=== PATIENT | female | born 1960 | race Caucasian/White ===

== ENCOUNTER 2018-02-12 16:49 | Inpatient (IN) | payer MEDICAID ==
[~2018-02-12] VITALS: Ht 157.5 cm; Wt 78.0 kg
[2018-02-12 16:58] VITALS: BP 137/80
--- NOTE | 2018-02-12 17:14 | NUR ---
PT AMBULATES TO [facility] RN NOTIFIED Addendum: 02/12/18 at 1736 by ADAMS UNABLE TO PROVIDE URINE AT THIS TIME
--- NOTE | 2018-02-12 17:30 | NUR ---
PT AMBULATES TO BED 1 FROM CHAIR E, REPORT GIVEN TO SONIYA MCLAIN
--- NOTE | 2018-02-12 17:36 | NUR ---
57 YO F BIB NEICE WITH C/O ABDOMINAL PAIN, DIZZINESS, VOMITING SINCE LAST NIGHT; RECEIVED PENICILLIN AND IBUPROFEN YESTERDAY FROM HER DENTIST S/P FRONT TOOTH EXTRACTION. PT REPORTS THAT SHE BELIEVES SHE IS FEELING THIS WAY BECAUSE OF THE PENICILLIN, IT HAS HAPPENED BEFORE. PT DENIES INJURY/TRAUMA. REPORTS SHE HAS NOT BEEN ABLE TO EAT/DRINK TODAY. PT AAOX4, GCS 15, CMS INTACT. RR EVEN AND UNLABORED, LUNGS CLEAR. ABD SOFT, NON-TENDER. BOWEL SOUNDS ACTIVE X 4 QUADRANTS. EAMBULATORY W/ STEADY GAIT. ER MD NOTIFIED OF PT STATUS. PT NEEDS MET. SAFETY PRECAUTIONS IN PLACE, WILL CONTINUE TO MONITOR.
--- NOTE | 2018-02-12 18:41 | NUR ---
Note jasiel in EDM - 02/12/18 at 1843 by [email or web address] PT RESTING COMFORTABLY IN [facility] AT THIS TIME W/ VSS, RR EVEN AND UNLABORED. NO NEW ORDERS AT THIS TIME FOR PT. HAS NOT BEEN SEEN BY ETHAN VALLEJO. SAFETY PRECAUTIONS IN PLACE. WILL CONTINUE TO MONITOR.
--- NOTE | 2018-02-12 18:43 | NUR ---
PT RESTING COMFORTABLY IN [facility] AT THIS TIME W/ VSS, RR EVEN AND UNLABORED. NO NEW ORDERS AT THIS TIME FOR PT. SAFETY PRECAUTIONS IN PLACE. WILL CONTINUE TO MONITOR.
--- NOTE | 2018-02-12 19:13 | NUR ---
RECEIVED REPORT FROM CHEMO BYRNES, TRANSFER OF CARE AT THIS TIME.
--- NOTE | 2018-02-12 19:15 | NUR ---
REPORT GIVEN TO SONIYA MACIAS
[2018-02-12] MEDS ORDERED: ONDANSETRON 4 MG ODT PO ONE (19:35)
[2018-02-12] MEDS ORDERED: KETOROLAC 60 MG/2 ML VIAL IM ONE (19:35)
--- NOTE | 2018-02-12 19:38 | NUR ---
ER MD SABA STATES PT NEEDS TO PROVIDE URINE PRIOR TO RECEIVING TORADOL SHOT. PT NOTIFIED. SONIYA MACIAS NOTIFIED.
--- NOTE | 2018-02-12 19:50 | NUR ---
PATIENT PROVIDED URINE AT THIS TIME.
[2018-02-12] MEDS ORDERED: NACL 0.9% 1,000 ML IV SCH (20:00)
--- NOTE | 2018-02-12 20:20 | NUR ---
PATIENT TO CT VIA GURNEY.
[2018-02-12 20:32] LABS: BASOPHILS % (AUTO) 0.3 % (0.0-2.0); EOSINOPHILS # (AUTO) 0.1 K/uL (0-0.4); EOSINOPHILS % (AUTO) 0.8 % (0.0-4.0); HEMOGLOBIN 13.6 g/dL (12.0-16.0); LYMPHOCYTES # (AUTO) 1.2 K/uL (2.5-16.5); LYMPHOCYTES % (AUTO) 12.3 % (20.5-51.1); MEAN CORPUSCULAR HEMOGLOBIN 30 pg (27-31); MEAN CORPUSCULAR HGB CONC 33 g/dL (33-37); MEAN CORPUSCULAR VOLUME 89.2 fL (80-94); MONOCYTES # (AUTO) 0.4 K/uL (0.8-1.0); NEUTROPHILS # (AUTO) 8.1 K/uL (1.8-7.7); NEUTROPHILS % (AUTO) 82.6 % (42.2-75.2); PLATELET COUNT (AUTO) 242 K/uL (140-450); RED CELL DISTRIBUTION WIDTH 14.4 % (11.6-13.7); WHITE BLOOD COUNT (AUTO) 9.9 K/uL (4.8-10.8)
--- NOTE | 2018-02-12 20:35 | NUR ---
PATIENT RETURN FROM CT.
[2018-02-12 20:41] LABS: ANION GAP 16.4 (8-16); CARBON DIOXIDE 23.9 mmol/L (21-32); CREATININE 0.6 mg/dL (0.6-1.3); POTASSIUM 4.3 mmol/L (3.5-5.1)
[2018-02-12 20:47] LABS: ALBUMIN 4.3 g/dL (3.4-5.0); TOTAL BILIRUBIN 0.4 mg/dL (0.0-1.0)
--- NOTE | 2018-02-12 21:15 | NUR ---
PATIENT RESTING AT THIS TIME.
[2018-02-12] MEDS ORDERED: ACETAMINOPHEN 325 MG TAB PO PRN (22:15)
[2018-02-12] MEDS ORDERED: ONDANSETRON 4 MG/2 ML VIAL IVP PRN (22:15)
--- NOTE | 2018-02-12 22:30 | NUR ---
PATIENT RESTING AT THIS TIME. NO SIGNS OF DISTRESS.
--- NOTE | 2018-02-12 23:09 | NUR ---
Patient will be admitted to care of DR. HANLEY. Admited to M/S. Will go to room 104A. Belongings list completed. Report to FRANCES BYRNES.
--- NOTE | 2018-02-12 23:10 | NUR ---
PT ARRIVED ON UNIT VIA WHEELCHAIR WITH ER NURSE. PT IN STABLE CONDITION. PT ABLE TO AMBULATE FROM WHEELCHAIR TO BED. PT IS A/O X4. IV ACCESS IN L AC 20 G, SALINE LOCKED. IV IS PATENT AND INTACT. SKIN IS INTACT. PT C/O RLQ ABDOMINAL PAIN 11/15. ALLERGY ARM BAND APPLIED. ORIENTED PT TO ROOM AND CALL LIGHT USE. BOARD UPDATED. BED LOCKED, LOW POSITION WITH SIDE RAILS UP X2. CALL LIGHT WITHIN REACH. MRSA SWAB COLLECTED. WILL CONTINUE TO MONITOR PT.
[2018-02-12] MEDS: MORPHINE SULFATE 2 MG/ML SYR IVP PRN (23:35)
--- NOTE | 2018-02-12 23:35 | NUR ---
PT C/O PAIN. MORPHINE GIVEN.
[2018-02-13] VITALS: BP 137/74
--- NOTE | 2018-02-13 00:40 | NUR ---
PER MD ORDERS, NG TUBE INSERTED, TURNED TO LOW INTERMITTENT SUCTION. PT TOLERATED WELL. WILL CONTINUE TO MONITOR.
--- NOTE | 2018-02-13 01:46 | NUR ---
PT C/O INSOMNIA. ANGIEIEN GIVEN. WILL CONTINUE TO MONITOR.
[2018-02-13] MEDS ORDERED: ZOLPIDEM 5 MG TAB PO SCH (02:00)
--- NOTE | 2018-02-13 03:52 | NUR ---
PT IS ASLEEP IN BED. NO S/SX OF DISTRESS. WILL CONTINUE TO MONITOR.
[2018-02-13] MEDS: MORPHINE SULFATE 2 MG/ML SYR IVP PRN ×4 (04:34→19:56)
--- NOTE | 2018-02-13 04:34 | NUR ---
PT C/O PAIN. MORPHINE GIVEN. WILL CONTINUE TO MONITOR.
[2018-02-13 06:14] LABS: BASOPHILS % (AUTO) 0.3 % (0.0-2.0); EOSINOPHILS # (AUTO) 0.2 K/uL (0-0.4); EOSINOPHILS % (AUTO) 2.8 % (0.0-4.0); HEMATOCRIT 37.8 % (36-48); HEMOGLOBIN 12.5 g/dL (12.0-16.0); LYMPHOCYTES # (AUTO) 1.6 K/uL (2.5-16.5); LYMPHOCYTES % (AUTO) 25.1 % (20.5-51.1); MEAN CORPUSCULAR HEMOGLOBIN 30 pg (27-31); MEAN CORPUSCULAR HGB CONC 33 g/dL (33-37); MEAN CORPUSCULAR VOLUME 89.8 fL (80-94); MONOCYTES # (AUTO) 0.4 K/uL (0.8-1.0); MONOCYTES % (AUTO) 6.9 % (1.7-9.3); NEUTROPHILS # (AUTO) 4.1 K/uL (1.8-7.7); NEUTROPHILS % (AUTO) 64.9 % (42.2-75.2); PLATELET COUNT (AUTO) 204 K/uL (140-450); RED BLOOD CELL COUNT(AUTO) 4.21 MIL/uL (4.20-5.40); RED CELL DISTRIBUTION WIDTH 14.4 % (11.6-13.7); WHITE BLOOD COUNT (AUTO) 6.4 K/uL (4.8-10.8)
[2018-02-13 06:36] LABS: ALBUMIN 3.5 g/dL (3.4-5.0); ANION GAP 11.2 (8-16); CARBON DIOXIDE 27.2 mmol/L (21-32); CREATININE 0.7 mg/dL (0.6-1.3); MAGNESIUM 1.7 mg/dL (1.8-2.4); PHOSPHORUS 3.9 mg/dL (2.5-4.9); POTASSIUM 4.4 mmol/L (3.5-5.1); TOTAL BILIRUBIN 0.4 mg/dL (0.0-1.0)
--- NOTE | 2018-02-13 07:11 | NUR ---
ENDORSED PT TO DAY SHIFT NURSE FOR CONTINUITY OF CARE. PT IN STABLE CONDITION.
--- NOTE | 2018-02-13 07:12 | NUR ---
RECEIVED REPORT FROM WILDLIFE PHOTOGRAPHER RN. PATIENT IS SLEEPING BUT AWAKENS TO NAME. NO SIGNS AND SYMPTOMS OF ACUTE DISTRESS NOTED AT THIS TIME. HAS NG TUBE IN LEFT NARE CONNECTED TO SUCTION, WITH LOW INTERMITTENT SETTING. HAS IV TO THE LEFT AC 20G, ON SALINE LOCK AT THIS TIME. DISCUSSED PLAN OF CARE WITH PATIENT AND SHE VERBALIZED UNDERSTANDING. BED IN LOWEST POSITION, SIDE RAILS UP X2, CALL LIGHT WITHIN REACH. WILL CONTINUE TO MONITOR.
[2018-02-13 08:00] VITALS: BP 116/77
--- NOTE | 2018-02-13 12:24 | NUR ---
PATIENT HAS BEEN SCREENED AND CATEGORIZED MODERATE NUTRITION RISK. PATIENT WILL BE SEEN WITHIN 3-5 DAYS OF ADMISSION. 02/15/18 02/17/18 ROMAINE GRIJALVA MBA, RD
[2018-02-13] MEDS ORDERED: MAG SULF 2000 MG/WATER PREMIX 50 ML IV SCH (14:30)
--- NOTE | 2018-02-13 15:30 | NUR ---
PATIENT TAKEN TO RADIOLOGY FOR SMALL BOWEL FOLLOW THROUGH.
[2018-02-13 16:00] VITALS: BP 109/77
--- NOTE | 2018-02-13 16:35 | NUR ---
PATIENT BACK FROM RADIOLOGY. NO SIGNS AND SYMPTOMS OF DISTRESS NOTED.
--- NOTE | 2018-02-13 18:50 | NUR ---
FOUND OUT FROM RADIOLOGY THAT NOT TO CONNECT PATIENT BACK TO SUCTION UNTIL AFTER 2129.
--- NOTE | 2018-02-13 19:30 | NUR ---
ENDORSED PATIENT TO CARBONATION TESTER RN FOR CONTINUITY OF CARE. PATIENT IN STABLE CONDITION.
--- NOTE | 2018-02-13 19:31 | NUR ---
RECEIVED REPORT FROM DAY SHIFT NURSE. PT IN BED, AAOX4. PT'S NIECE AT BEDSIDE. NO C/O PAIN AT THIS TIME. NO RESP DISTRESS NOTED. PT ON ROOM AIR. PT HAS NG TUBE TO LEFT NARE. DISCUSSED PLAN OF CARE, PT VERBALIZED UNDERSTANDING. SAFETY PRECAUTION IN PLACE. CALL LIGHT WITHIN REACH.
[2018-02-13] MEDS: FAMOTIDINE 20 MG/2 ML VIAL IV SCH (20:12)
--- NOTE | 2018-02-13 21:50 | NUR ---
AUTOMOBILE REPOSSESSOR IN THE ROOM FOR X-RAY OF ABDOMEN.
--- NOTE | 2018-02-13 22:05 | NUR ---
STARTED LOW INTERMITTENT SUCTION. PT TOLERATED WELL. DENIES PAIN. NO RESP DISTRESS NOTED.
[2018-02-13] MEDS: NACL 0.9% 1,000 ML IV SCH (23:50)
[2018-02-14] VITALS: BP 134/80
--- NOTE | 2018-02-14 00:10 | NUR ---
PT LYING COMFORTABLY IN BED. RESP EVEN AND UNLABORED. NO C/O PAIN.
[2018-02-14] MEDS: MORPHINE SULFATE 2 MG/ML SYR IVP PRN ×5 (02:07→22:04)
--- NOTE | 2018-02-14 02:15 | NUR ---
PT C/O INABILITY TO SLEEP AND ASKING FOR MEDS TO MAKE HER SLEEP. WILL PAGE DR. MCFARLAND.
--- NOTE | 2018-02-14 02:18 | NUR ---
PAGED DR. MCFARLAND. DR. Emilio COLEMAN PRINTER HELPER. ORDERED AMBIEN 5 MG PO ONCE.
[2018-02-14] MEDS ORDERED: ZOLPIDEM 5 MG TAB ONE (02:20)
[2018-02-14] MEDS ORDERED: ZOLPIDEM 5 MG TAB PO SCH (02:30)
--- NOTE | 2018-02-14 04:30 | NUR ---
PT SLEEPING. NO S/S OF PAIN. NO S/S OF RESP DISTRESS NOTED.
--- NOTE | 2018-02-14 06:26 | NUR ---
PT SLEEPING. RESP EVEN AND UNLABORED. NO S/S OF PAIN OR SOB.
--- NOTE | 2018-02-14 07:03 | NUR ---
ENDORSED PT TO DAY SHIFT NURSE. PT IN STABLE CONDITION.
[2018-02-14 07:05] LABS: BASOPHILS % (AUTO) 0.5 % (0.0-2.0); EOSINOPHILS # (AUTO) 0.2 K/uL (0-0.4); EOSINOPHILS % (AUTO) 4.1 % (0.0-4.0); HEMATOCRIT 36.6 % (36-48); HEMOGLOBIN 12.2 g/dL (12.0-16.0); LYMPHOCYTES # (AUTO) 1.1 K/uL (2.5-16.5); LYMPHOCYTES % (AUTO) 20.3 % (20.5-51.1); MEAN CORPUSCULAR HEMOGLOBIN 30 pg (27-31); MEAN CORPUSCULAR HGB CONC 34 g/dL (33-37); MEAN CORPUSCULAR VOLUME 89.9 fL (80-94); MONOCYTES # (AUTO) 0.4 K/uL (0.8-1.0); MONOCYTES % (AUTO) 6.8 % (1.7-9.3); NEUTROPHILS # (AUTO) 3.7 K/uL (1.8-7.7); NEUTROPHILS % (AUTO) 68.3 % (42.2-75.2); PLATELET COUNT (AUTO) 179 K/uL (140-450); RED BLOOD CELL COUNT(AUTO) 4.07 MIL/uL (4.20-5.40); RED CELL DISTRIBUTION WIDTH 14.4 % (11.6-13.7); WHITE BLOOD COUNT (AUTO) 5.4 K/uL (4.8-10.8)
--- NOTE | 2018-02-14 07:05 | NUR ---
ASSUMED CONTINUITY OF CARE. NO SIGNS AND SYMPTOMS OF ACUTE DISTRESS NOTICED. INITIAL ASSESSMENT DONE. HOB ELEVATED AND KEEP COMFORTABLE. EXPLAINED DIAGNOSIS, PLAN OF CARE, PAIN MANAGEMENT TEACHING, USE OF CALL LIGHT/BED/TV/BATHROOM. VERBALIZED UNDERSTANDING. CALL LIGHT WITHIN REACH.
[2018-02-14 07:08] LABS: ALBUMIN 3.2 g/dL (3.4-5.0); ANION GAP 10.3 (8-16); CARBON DIOXIDE 25.9 mmol/L (21-32); CREATININE 0.5 mg/dL (0.6-1.3); POTASSIUM 4.2 mmol/L (3.5-5.1); TOTAL BILIRUBIN 0.4 mg/dL (0.0-1.0)
[2018-02-14 08:00] VITALS: BP 111/71
--- NOTE | 2018-02-14 08:00 | NUR ---
DR. ANDERSEN CALLED AND ASKED FOR XR SMALL BOWEL FOLLOW TROUGH RESULTS AND IMPRESSION WAS READ TO DR. ANDERSEN VIA PHONE. NO ORDER RECEIVED. INFORMED CHARGE NURSE PAKO SIU.
--- NOTE | 2018-02-14 08:00 | NUR ---
Patient's Plan of Care was discussed and reviewed with ELECTRONICS DEPARTMENT MANAGER: CRISTY BAEZA
[2018-02-14] MEDS: FAMOTIDINE 20 MG/2 ML VIAL IV SCH ×2 (09:00→20:40)
[2018-02-14] MEDS: NACL 0.9% 1,000 ML IV SCH (09:50)
[2018-02-14 12:00] VITALS: BP 125/68
--- NOTE | 2018-02-14 12:00 | NUR ---
VITALS SIGNS STABLE. NO C/O PAIN. WILL MONITOR.
[2018-02-14] MEDS: DEXT 5% /NACL 0.9% 1,000 ML IV SCH (12:20)
[2018-02-14] MEDS ORDERED: DEXT 5% / NACL 0.9% 500 ML IV SCH (17:40)
[2018-02-14 18:25] LABS: PROTHROMBIN TIME 9.8 secs (10.8-13.4)
[2018-02-14 18:41] LABS: CHOL/HDL RATIO 2.8 (1-4.5); THYROID STIMULATING HORMONE 3.29 uIU/mL (0.34-3.74)
--- NOTE | 2018-02-14 19:12 | NUR ---
REPORT GIVEN TO ALESHA MERCADO -SONIYA. IVF INFUSING WELL. IN STABLE CONDITION.
--- NOTE | 2018-02-14 19:13 | NUR ---
RECEIVED REPORT FROM DAY SHIFT NURSE. PT IN BED, AAOX4. PT HAS NG TUBE TO LEFT NARE, ON LOW INTERMITTENT SUCTION, PT TOLERATING WELL. NO C/O PAIN OR SOB. HOB ELEVATED. IV TO LEFT AC #20G, D5NS AT 100 ML/HR, INFUSING WELL. DISCUSSED PLAN OF CARE, PT VERBALIZED UNDERSTANDING. SAFETY PRECAUTION IN PLACE. CALL LIGHT WITHIN REACH.
[2018-02-14 21:56] LABS: APPEARANCE,URINE SL CLOUDY (CLEAR); BILIRUBIN,URINE NEGATIVE (NEGATIVE); BLOOD, URINE TRACE-I (NEGATIVE); COLOR,URINE YELLOW (YELLOW); LEUKOCYTE ESTERASE ,URINE NEGATIVE (NEGATIVE); NITRITE, URINE POSITIVE (NEGATIVE); UGLUCOSE NEGATIVE (NEGATIVE)
--- NOTE | 2018-02-14 22:04 | NUR ---
PT C/O ABDOMINAL PAIN 11/15. MORPHINE 2 MG IVP GIVEN ORDERED FOR MODERATE PAIN.
[2018-02-14 22:55] LABS: RBC,URINE 0-5 (RARE) /HPF (0-5); WBC,URINE 0-5 (RARE) /HPF (0-5)
[2018-02-15] VITALS: BP 124/79
[2018-02-15] MEDS: ZOLPIDEM 5 MG TAB PO PRN (00:32)
--- NOTE | 2018-02-15 00:32 | NUR ---
PT ASKED FOR MEDICINE TO MAKE HER SLEEP. AMBIEN 5 MG PO GIVEN ORDERED.
--- NOTE | 2018-02-15 02:00 | NUR ---
PT SLEEPING, EASILY AROUSABLE. NO S/S OF DISTRESS NOTED.
[2018-02-15] MEDS: MORPHINE SULFATE 2 MG/ML SYR IVP PRN ×5 (03:19→21:34)
--- NOTE | 2018-02-15 03:19 | NUR ---
PT C/O ABDOMINAL PAIN. MORPHINE 2MG IVP GIVEN ORDERED FOR MODERATE PAIN.
--- NOTE | 2018-02-15 05:50 | NUR ---
DR. DANIEL MADE AWARE OF PT'S URINE BACTERIA 4+.
[2018-02-15] MEDS: DEXT 5% /NACL 0.9% 1,000 ML IV SCH ×2 (06:57→17:34)
--- NOTE | 2018-02-15 07:15 | NUR ---
ENDORSED PT TO DAY SHIFT NURSE. PT IN STABLE CONDITION.
--- NOTE | 2018-02-15 07:16 | NUR ---
PATIENT LYING IN BED, ASSISTED PATIENT TO BATHROOM AND BACK TO BED VIA AMBULATION. NO DISTRESS NOTED. COMPLAINTS OF ABDOMEN PAIN, WILL MEDICATE PER ORDERS. RESPIRATIONS EVEN, UNLABORED, ON ROOM AIR. AAOX4, CALM, COOPERATIVE, SKIN COLOR APPROPRIATE TO ETHNICITY, WARM TO TOUCH. SKIN IS INTACT. HAS NGTUBE IN PLACE, ON LOW-INTERMITTENT SUCTION WITH YELLOW DRAINAGE. DENIES ANY NAUSEA/VOMITING AT THIS TIME. NO VOMIT REPORTS DURING EVENT SALES REPRESENTATIVE. HAD 1 BM LAST NIGHT, AND 1 EARLIER THIS MORNING. LUNGS CTA ON ALL LOBES. ABDOMEN SOFT. REVIEWED PLAN OF CARE WITH PATIENT. PATIENT VERBALIZED UNDERSTANDING. SAFETY MEASURES IN PLACE, CALL LIGHT WITHIN REACH. WILL CONTINUE TO MONITOR.
[2018-02-15 08:00] VITALS: BP 126/72
[2018-02-15] MEDS: FAMOTIDINE 20 MG/2 ML VIAL IV SCH ×2 (08:23→21:31)
--- NOTE | 2018-02-15 08:30 | NUR ---
PATIENT LYING DOWN IN BED WITH COMPLAINTS OF ABD PAIN. MEDICATED WITH MORPHINE PER MD ORDERS. OTHER SCHEDULED MEDICATIONS DUE GIVEN. SAFETY MEASURES IN PLACE, CALL LIGHT WITHIN REACH. WILL CONTINUE TO MONITOR.
[2018-02-15 08:35] LABS: BASOPHILS % (AUTO) 0.2 % (0.0-2.0); EOSINOPHILS # (AUTO) 0.2 K/uL (0-0.4); EOSINOPHILS % (AUTO) 4.1 % (0.0-4.0); HEMATOCRIT 33.9 % (36-48); HEMOGLOBIN 11.4 g/dL (12.0-16.0); LYMPHOCYTES % (AUTO) 17.3 % (20.5-51.1); MEAN CORPUSCULAR HEMOGLOBIN 30 pg (27-31); MEAN CORPUSCULAR HGB CONC 34 g/dL (33-37); MEAN CORPUSCULAR VOLUME 89.7 fL (80-94); MONOCYTES # (AUTO) 0.3 K/uL (0.8-1.0); MONOCYTES % (AUTO) 5.7 % (1.7-9.3); NEUTROPHILS # (AUTO) 4.1 K/uL (1.8-7.7); NEUTROPHILS % (AUTO) 72.7 % (42.2-75.2); PLATELET COUNT (AUTO) 176 K/uL (140-450); RED BLOOD CELL COUNT(AUTO) 3.78 MIL/uL (4.20-5.40); WHITE BLOOD COUNT (AUTO) 5.7 K/uL (4.8-10.8)
[2018-02-15] MEDS: LACTOBACILLUS RHAMNOSUS GG 1 EACH CAP PO SCH (09:00)
[2018-02-15 09:06] LABS: ANION GAP 11.5 (8-16); CARBON DIOXIDE 23.1 mmol/L (21-32); CREATININE 0.5 mg/dL (0.6-1.3); POTASSIUM 3.6 mmol/L (3.5-5.1)
--- NOTE | 2018-02-15 10:18 | NUR ---
ASSISTED PATIENT TO BATHROOM AND BACK TO BED. SCHEDULED MEDICATIONS DUE GIVEN. LACTOBACILLUS PO NOT GIVEN DUE TO PATIENT NPO AND VERIFIED WITH DR. STODDARD. PER DR. STODDARD, NOT TO GIVE LACTOBACILLUS DOSE TODAY. WILL CONTINUE TO MONITOR.
--- NOTE | 2018-02-15 12:57 | NUR ---
PATIENT SITTING IN BED COMFORTABLY. NO NAUSEA/VOMITING. COMPLAINS OF ABD PAIN, MORPHINE GIVEN PER ORDERS. WILL CONTINUE TO MONITOR.
--- NOTE | 2018-02-15 13:02 | NUR ---
CM NOTE RECEIVED CALL FROM [employer] [facility] PH# [phone] AND HE SAID THAT IF THEIR PRODUCTION TEAM MANAGER WOULD DECIDE TO TRANSFER PATIENT TO THEIR CONTRACTED FACILITY, FOR [facility] AUTH# [id number]. I ALSO GAVE HIM THE NUMBER TO THE NURSING STATION WHERE PATIENT IS. DR. STODDARD AWARE. INITIAL REVIEW FAXED TO [facility] [phone] PH# [phone] AND TO [employer] [facility] [phone] [facility] PH# [phone].
--- NOTE | 2018-02-15 14:30 | NUR ---
REMOVED NGTUBE PER MD ORDERS. PATIENT TOLERATED PROCEDURE WELL. WILL CONTINUE TO MONITOR.
[2018-02-15 16:00] VITALS: BP 126/81
--- NOTE | 2018-02-15 17:40 | NUR ---
PATIENT SITTING IN BED. NO DISTRESS NOTED. COMPLAINS OF ABD PAIN. DENIES ANY NAUSEA/VOMITING. MORPHINE GIVEN PER MD ORDERS. WILL CONTINUE TO MONITOR.
--- NOTE | 2018-02-15 19:36 | NUR ---
RECEIVED BEDSIDE REPORT FROM SONIYA BLACKWOOD. PT IN BED NO SIGNS OF DISTRESS. ON RA, IV IN LEFT AC INFUSING D5 AND 1/2 NS AT 90 ML/HR. PT AWAKE AND ABLE TO FOLLOW COMMANDS DURING ASSESSMENT. CALL LIGHT WITHIN REACH, WILL CONTINUE TO MONITOR.
--- NOTE | 2018-02-15 19:36 | NUR ---
GAVE REPORT TO INSTRUCTIONAL SERVICES SPECIALIST NURSE FOR CONTINUITY OF CARE. PATIENT IN STABLE CONDITION.
--- NOTE | 2018-02-15 21:34 | NUR ---
PT C/O PAIN 8/10 IN ABDOMEN, MEDICATED WITH MORPHINE ACCORDING TO MD ORDER. WILL CONTINUE TO MONITOR.
--- NOTE | 2018-02-15 22:06 | NUR ---
PT RESTING IN BED NO SIGNS OF ACUTE DISTRESS. WILL CONTINUE TO MONITOR.
--- NOTE | 2018-02-15 23:30 | NUR ---
PTS IV DRESSING WET, CHANGED DRESSING, SECURED WITH TAPE. PT DENIES PAIN AT SITE. WILL CONTINUE TO MONITOR.
[2018-02-16] VITALS: BP 112/64
[2018-02-16] MEDS: ZOLPIDEM 5 MG TAB PO PRN (00:29)
--- NOTE | 2018-02-16 00:29 | NUR ---
PT C/O OF HAVING PROBLEMS STAYING ASLEEP. MEDICATED WITH AMBIEN ACCORDING TO MD ORDER. WILL CONTINUE TO MONITOR.
[2018-02-16] MEDS ORDERED: MAG SULF 2000 MG/WATER PREMIX 50 ML IV SCH (02:00)
--- NOTE | 2018-02-16 03:00 | NUR ---
PT SLEEPING IN BED NO SIGNS OF DISTRESS. WILL CONTINUE TO MONITOR.
[2018-02-16] MEDS: DEXT 5% /NACL 0.9% 1,000 ML IV SCH (05:47)
[2018-02-16] MEDS: MORPHINE SULFATE 2 MG/ML SYR IVP PRN ×2 (05:53→10:51)
--- NOTE | 2018-02-16 05:53 | NUR ---
PT C/O PAIN 01/15, MEDICATED ACCORDING TO MD ORDER.
[2018-02-16] MEDS ORDERED: LACTOBACILLUS RHAMNOSUS GG 1 EACH CAP PO SCH (06:35)
[2018-02-16] MEDS ORDERED: NITR100C7 PO (06:41)
[2018-02-16] MEDS ORDERED: LACT10CA PO (06:41)
[2018-02-16 06:43] LABS: BASOPHILS % (AUTO) 0.3 % (0.0-2.0); EOSINOPHILS # (AUTO) 0.2 K/uL (0-0.4); EOSINOPHILS % (AUTO) 5.4 % (0.0-4.0); HEMATOCRIT 35.6 % (36-48); HEMOGLOBIN 11.9 g/dL (12.0-16.0); LYMPHOCYTES # (AUTO) 1.4 K/uL (2.5-16.5); LYMPHOCYTES % (AUTO) 32.6 % (20.5-51.1); MEAN CORPUSCULAR HEMOGLOBIN 30 pg (27-31); MEAN CORPUSCULAR HGB CONC 34 g/dL (33-37); MEAN CORPUSCULAR VOLUME 89.3 fL (80-94); MONOCYTES # (AUTO) 0.4 K/uL (0.8-1.0); MONOCYTES % (AUTO) 8.5 % (1.7-9.3); NEUTROPHILS # (AUTO) 2.3 K/uL (1.8-7.7); NEUTROPHILS % (AUTO) 53.2 % (42.2-75.2); PLATELET COUNT (AUTO) 208 K/uL (140-450); RED BLOOD CELL COUNT(AUTO) 3.98 MIL/uL (4.20-5.40); RED CELL DISTRIBUTION WIDTH 13.8 % (11.6-13.7); WHITE BLOOD COUNT (AUTO) 4.3 K/uL (4.8-10.8)
[2018-02-16 06:58] LABS: ANION GAP 10.1 (8-16); CARBON DIOXIDE 26.6 mmol/L (21-32); CREATININE 0.7 mg/dL (0.6-1.3); POTASSIUM 3.7 mmol/L (3.5-5.1)
[2018-02-16 07:03] LABS: MAGNESIUM 2.3 mg/dL (1.8-2.4); PHOSPHORUS 4.1 mg/dL (2.5-4.9)
--- NOTE | 2018-02-16 07:32 | NUR ---
ENDORSED PT TP DAY SHIFT NURSE PT STABLE.
--- NOTE | 2018-02-16 07:33 | NUR ---
RECEIVED REPORT FROM THE TRANSIT PLANNER NURSE AT BEDSIDE FOR CONTINUITY OF CARE. PT IS AWAKE AND ORIENTED. INTRODUCED MYSELF AND UPDATED THE BOARD. PT ON ROOM AIR. L AC 20G D5 NS AT 90ML INFUSING. V/S WITHIN NORMAL RANGE. DENIES PAIN. SKIN INTACT. PER MD, PT WILL BE DC'D TODAY. PER PT, HER ONLY RIDE WILL BE HERE AFTER 12PM. WILL AWAIT ORDERS. WILL CONTINUE TO MONITOR PT.
[2018-02-16] MEDS ORDERED: DOCU-299 PO (07:54)
[2018-02-16 08:00] VITALS: BP 115/70
[2018-02-16] MEDS: FAMOTIDINE 20 MG/2 ML VIAL IV SCH (08:54)
[2018-02-16] MEDS: LACTOBACILLUS RHAMNOSUS GG 1 EACH CAP PO SCH (08:54)
--- NOTE | 2018-02-16 09:02 | NUR ---
ADMINISTERED MORNING MEDS. PT TOLERATED WELL. PT REQUESTED SOME DISPOSABLE UNDERWEAR AND PADS. GIVEN. ALL NEEDS MET AT THIS TIME. WILL CONTINUE TO MONITOR PT.
--- NOTE | 2018-02-16 10:54 | NUR ---
ADMINISTERED MORPHINE REQUESTED. C/O PAIN 12/15.TOLERATED WELL. WILL CONTINUE TO MONITOR PT.
--- NOTE | 2018-02-16 12:26 | NUR ---
PT WANTED TO GET WASHED UP. GOT HER SOME WASH CLOTHS. REMOVED IV, CANNULA INTACT. NO BLEEDING NOTED. REMOVED ID BANDS. PT WILL LET ME KNOW WHEN SHE IS READY FOR D/C INSTRUCTIONS. PT'S RIDE SHOULD BE HERE IN ABOUT AN HOUR PER PT.
--- NOTE | 2018-02-16 13:02 | NUR ---
GAVE D/C INSTRUCTIONS TO PT. PT VERBALIZED UNDERSTANDING. ANSWERED ALL QUESTIONS. PT WILL GET DRESSED AND PER PT RIDE IS ON HER WAY. WILL AWAIT TRANSPORTATION. WILL GET WHEELCHAIR READY.
--- NOTE | 2018-02-16 13:18 | NUR ---
RIN NOTE DISCHARGE SUMMARY FAXED TO [facility] [phone] PH# [phone] AND TO [facility] [phone] [facility] PH# [phone].
--- NOTE | 2018-02-16 13:40 | NUR ---
WALKED PT OUT WITH DAUGHTER ACCOMPANYING PT. ALL PERSONAL BELONGINGS WITH PT. REFUSED WHEELCHAIR. PT IN STABLE CONDITION.
--- NOTE | 2018-02-17 08:27 | NUR ---
FAXED DISCHARGE SUMMARY TO [facility] [phone] AND [facility] [phone] Addendum: 02/17/18 at 0830 by Radha William CM DID NO FAX SUMMARY, ALREADY FAXED
== END 2018-02-16 13:40 | disposition home or self-care (01) | DRG 247 ==
LOC: MED 16:49 → MTU 22:28
PROVIDERS: ADMIT Hospitalist; ATTEND General Practice
PROC: 0D9670Z Drainage of Stomach with Drainage Device, Via Natural or Artificial Opening (ICD-10-PCS; principal; 2018-02-13)
DX: K56.7 Ileus, unspecified (principal); E44.0 Moderate protein-calorie malnutrition; E83.42 Hypomagnesemia; K57.90 Diverticulosis of intestine, part unspecified, without perforation or abscess without bleeding; D18.09 Hemangioma of other sites; E66.9 Obesity, unspecified; N39.0 Urinary tract infection, site not specified; I10 Essential (primary) hypertension; Z68.31 Body mass index [BMI] 31.0-31.9, adult; Z88.6 Allergy status to analgesic agent; Z90.49 Acquired absence of other specified parts of digestive tract; Z90.710 Acquired absence of both cervix and uterus
CPT/HCPCS: 36415; 71045; 74018; 74250; 80048; 80053; 81001; 81025; 83036; 83690; 83735; 84100; 84134; 84443; 85025; 85610; 85730; 87081; 87086; 93005; 96372; 99285; J0696; J1885; J2270; J3475; J3490; J7030; J7042; J7060; Q0092; Q9967; S0119

== ENCOUNTER 2021-08-02 18:06 | Emergency (ER) | payer MEDICAID ==
[~2021-08-02] VITALS: Ht 154.9 cm; Wt 92.1 kg
[~2021-08-02 18:06] MED LIST: DOCU-299 PO; LACT10CA PO; NITR100C7 PO
[2021-08-02 18:10] VITALS: BP 155/85
--- NOTE | 2021-08-02 18:20 | NUR ---
PT AMBULATED TO BED 11
--- NOTE | 2021-08-02 18:25 | NUR ---
61 Y/O FEMALE C/O OF ITCHY RASH ON THE UPPER TORSO X 2 DAYS. PT REPORTS DEVELOPING RASH AND A SWOLLEN FACE AFTER RECEIVING THE FLU VACCINE ON 07/31/21. PT REPORTS SOB BUT DENIES CHEST PAIN, HEADACHE, AND DIZZINESS. PT DENIES PAIN. PT DENIES ANY PREVIOUS ALLERGIC REACTIONS, DENIES EATING ANYTHING NEW, AND COMING INTO CONTACT WITH ANY THING THAT COULD HAVE CAUSED A REACTION. PT IS A&O X 4, STEADY GAIT. LUNG SOUNDS CLEAR, SPO2 IS 99% ON ROOM AIR, NO SIGNS OF DISTRESS AT THIS TIME. PMHX: HTN NKDA
--- NOTE | 2021-08-02 18:25 | NUR ---
Note undone in EDM - 08/02/21 at 1919 by [email or web address] 61 Y/O FEMALE C/O OF ITCHY RASH ON THE UPPER TORSO X 2 DAYS. PT REPORTS DEVELOPING RASH AND A SWOLLEN FACE AFTER RECEIVING THE FLU VACCINE ON 07/31/21. PT REPORTS SOB, DENIES CHEST PAIN, HEADACHE, AND DIZZINESS. PT REPORTS 0/10 PAIN AT THIS TIME. PT DENIES ANY PREVIOUS ALLERGIC REACTIONS, DENIES EATING ANYTHING NEW, AND COMING INTO CONTACT WITH ANY THING THAT COULD HAVE CAUSED A REACTION. PT IS A&O X 4, STEADY GAIT, ACTIVE BOWEL SOUNDS IN 4 QUADRANTS. PMHX: HTN NKDA
[2021-08-02] MEDS ORDERED: FAMOTIDINE 20 MG TAB PO ONE (18:50)
[2021-08-02] MEDS ORDERED: predniSONE 20 MG TAB PO ONE (18:50)
[2021-08-02] MEDS ORDERED: diphenhydrAMINE 50 MG CAP PO ONE (18:50)
--- NOTE | 2021-08-02 19:23 | NUR ---
TRANSFER OF CARE, REPORT GIVEN TO DESTINEE BYRNES.
--- NOTE | 2021-08-02 19:25 | NUR ---
PT C/O OF ITCHING ON CHEST. MEDICATIONS GIVEN PO PER ORDER. WARM BLANKET GIVEN TO PT.
[2021-08-02] MEDS ORDERED: BEN50 PO (20:13)
[2021-08-02] MEDS ORDERED: PRED20TA5 PO (20:13)
[2021-08-02] MEDS ORDERED: FAMO-90 PO (20:13)
[2021-08-02] MEDS ORDERED: EPIN1KIT31 IM (20:13)
[2021-08-02 20:39] VITALS: BP 121/72
--- NOTE | 2021-08-02 20:39 | NUR ---
Patient discharged with v/s stable. Written and verbal after care instructions given and explained. Patient verbalized understanding. Ambulatory with steady gait. All questions addressed prior to discharge. Advised to follow up with PMD.
== END 2021-08-02 20:40 | disposition home or self-care (01) ==
LOC: MED 18:06
DX: T78.49XA Other allergy, initial encounter (principal); L50.9 Urticaria, unspecified; I10 Essential (primary) hypertension; Z90.710 Acquired absence of both cervix and uterus; Z98.890 Other specified postprocedural states; Z79.899 Other long term (current) drug therapy; Z79.2 Long term (current) use of antibiotics; Z88.5 Allergy status to narcotic agent; X58.XXXA Exposure to other specified factors, initial encounter
CPT/HCPCS: 99284; J7512; Q0163

== ENCOUNTER 2022-06-08 21:53 | Emergency (ER) | payer MEDICAID ==
[~2022-06-08] VITALS: Ht 157.5 cm; Wt 94.3 kg
[~2022-06-08 21:53] MED LIST changes: +BEN50 PO; +EPIN1KIT31 IM; +FAMO-90 PO; +PRED20TA5 PO
[2022-06-08 22:10] VITALS: BP 141/95
--- NOTE | 2022-06-08 22:20 | NUR ---
pt to 11
--- NOTE | 2022-06-08 22:28 | NUR ---
Patient being evaluated by physician at bedside.
[2022-06-08] MEDS ORDERED: AMOXIL/CLAVULANATE 875/125 MG 1 TAB PO ONE (22:30)
[2022-06-08] MEDS ORDERED: HYDROcodone/APAP 5/325 MG 1 TAB TAB PO ONE (22:30)
[2022-06-08] MEDS ORDERED: ACET-5629 PO (22:35)
[2022-06-08] MEDS ORDERED: AMOX1TAB8 PO (22:35)
[2022-06-08 22:56] VITALS: BP 141/95
== END 2022-06-08 22:56 | disposition home or self-care (01) ==
LOC: MED 21:53
DX: S41.151A Open bite of right upper arm, initial encounter (principal); L03.311 Cellulitis of abdominal wall; I10 Essential (primary) hypertension; Z79.899 Other long term (current) drug therapy; W55.01XA Bitten by cat, initial encounter; Y93.89 Activity, other specified; Y92.89 Other specified places as the place of occurrence of the external cause; Y99.8 Other external cause status
CPT/HCPCS: 99283